=== PATIENT | female | born 1990 | race Caucasian/White ===

== ENCOUNTER 2019-06-09 11:45 | Emergency (ER) | payer MEDICAID, OTHER ==
[2019-06-09 11:54] VITALS: BP 105/73
[2019-06-09 12:41] LABS: Bacteria,Urine 1+ /HPF (Negative); Bilirubin,Urine NEG (Negative); Blood,Urine NEG (Negative); Mucus,Urine 3+ /HPF
[2019-06-09 12:42] LABS: Color,Urine Yellow (Yellow)
--- NOTE | 2019-06-09 13:03 | Emergency Department Report ---
<LENO BARRETT - Last Filed: 06/09/19 11:56> ED HPI - General Chief complaint: Abdominal Pain Stated complaint: 13 WKS /VOMIT/DIZZY Source: patient Mode of arrival: Ambulatory Limitations: No Limitations - History of Present Illness Initial comments: 28 yo female states that she has been having increased nausea and vomiting for the duration of her 13 week . Her OBGYN gave her Prromethazine and Odansetron 4 weeks ago, but she has not had any relief. She further states that nothing makes it better. - Related Data Previous Rx's Medication Instructions Recorded Last Taken Type Doxylamine Succinate/Vit B6 2 each PO QHS #30 tablet. 06/09/19 Unknown Rx [Mauri Burr 10-10 mg Tablet] Allergies Allergy/AdvReac Type Severity Reaction Status Date / Time No Known Allergies Allergy Verified 06/09/19 11:49 ED Past Medical Hx - Past Medical History Previous Medical History?: No Hx Asthma: No Hx HIV: No - Surgical History Past Surgical History?: Yes Additional Surgical History: 3 c section - Social History Smoking Status: Never Smoker Substance Use Type: None - Medications Home Medications: Home Medications Medication Instructions Recorded Confirmed Last Taken Type Doxylamine Succinate/Vit B6 2 each PO QHS #30 tablet. 06/09/19 Unknown Rx [Mauri Burr 10-10 mg Tablet] ED Physical Exam - General Limitations: No Limitations ED Disposition Clinical Impression: with 13 completed weeks gestation, Nausea and vomiting during Disposition: DC-01 TO HOME OR SELFCARE Condition: Stable Instructions: Morning Sickness (ED), Hyperemesis Gravidarum (ED), Abdominal Pain (ED) Additional Instructions: Make sure to follow up with the primary care physician as discussed. Take all your medications as you've been prescribed. If you have any worsening symptoms or develop new symptoms please return to ED immediately. Prescriptions: Doxylamine Succinate/Vit B6 [Mauri Burr 10-10 mg Tablet] 2 each PO QHS #30 tablet. Referrals: PRIMARY CARE, [Primary Care Provider] - 3-5 Days [facility] [Provider Group] - 3-5 Days Forms: Accompanied Note, Work/School Release Form(ED) <KYLE RODRIGUEZ - Last Filed: 06/10/19 08:19> ED HPI - History of Present Illness Initial comments: Patient is a 28-year-old 003 who presents at about 13 weeks to ED complaining nausea vomiting with some dizziness and problems with eating and drinking fluids. Patient states she is unable to keep food down or any liquid to nausea. She denies abdominal pain, frequent urination, vaginal bleeding or discharge, fever, chills ED Review of Systems ROS: Stated complaint: 13 WKS /VOMIT/DIZZY Other details as noted in HPI Comment: All other systems reviewed and negative ED Physical Exam - General General appearance: alert, in no apparent distress - Head Head exam: Present: atraumatic, normocephalic - Eye Eye exam: Present: normal appearance - ENT ENT exam: Present: mucous membranes moist - Neck Neck exam: Present: normal inspection - Respiratory Respiratory exam: Present: normal lung sounds bilaterally. Absent: respiratory distress - Cardiovascular Cardiovascular Exam: Present: regular rate, normal rhythm. Absent: systolic murmur, diastolic murmur, rubs, gallop - GI/Abdominal GI/Abdominal exam: Present: soft, normal bowel sounds - Extremities Exam Extremities exam: Present: normal inspection - Back Exam Back exam: Present: normal inspection - Neurological Exam Neurological exam: Present: alert, oriented X3 - Psychiatric Psychiatric exam: Present: normal affect, normal mood - Skin Skin exam: Present: warm, dry, intact, normal color. Absent: rash ED Course Vital Signs 06/09/19 11:50 Temperature 97.7 F Pulse Rate 77 Respiratory 18 Rate Blood Pressure 105/73 [Right] O2 Sat by Pulse 100 Oximetry ED Medical Decision Making - Lab Data Result diagrams: 06/09/19 13:26 06/09/19 13:26 Laboratory Last Values WBC 5.9 K/mm3 (4.5-11.0) 06/09/19 13:26 RBC 4.64 M/mm3 (3.65-5.03) 06/09/19 13:26 Hgb 13.7 gm/dl (10.1-14.3) 06/09/19 13:26 Hct 38.9 % (30.3-42.9) 06/09/19 13:26 MCV 84 fl (79-97) 06/09/19 13:26 MCH 30 pg (28-32) 06/09/19 13:26 MCHC 35 % (30-34) H 06/09/19 13:26 RDW 12.8 % (13.2-15.2) L 06/09/19 13:26 Plt Count 264 K/mm3 (140-440) 06/09/19 13:26 Lymph % (Auto) 19.6 % (13.4-35.0) 06/09/19 13:26 [place] % (Auto) 4.0 % (0.0-7.3) 06/09/19 13:26 Eos % (Auto) 0.2 % (0.0-4.3) 06/09/19 13:26 Baso % (Auto) 0.5 % (0.0-1.8) 06/09/19 13:26 Lymph # 1.1 K/mm3 (1.2-5.4) L 06/09/19 13:26 [place] # 0.2 K/mm3 (0.0-0.8) 06/09/19 13:26 Eos # 0.0 K/mm3 (0.0-0.4) 06/09/19 13:26 Baso # 0.0 K/mm3 (0.0-0.1) 06/09/19 13:26 Seg Neutrophils % 75.7 % (40.0-70.0) H 06/09/19 13:26 Seg Neutrophils # 4.4 K/mm3 (1.8-7.7) 06/09/19 13:26 Sodium 137 mmol/L (137-145) 06/09/19 13:26 Potassium 4.2 mmol/L (3.6-5.0) 06/09/19 13:26 Chloride 100.6 mmol/L (98-107) 06/09/19 13:26 Carbon Dioxide 23 mmol/L (22-30) 06/09/19 13:26 Anion Gap 18 mmol/L 06/09/19 13:26 BUN 7 mg/dL (7-17) 06/09/19 13:26 Creatinine 0.5 mg/dL (0.7-1.2) L 06/09/19 13:26 Estimated GFR > 60 ml/min 06/09/19 13:26 BUN/Creatinine Ratio 14 % 06/09/19 13:26 Glucose 85 mg/dL (65-100) 06/09/19 13:26 Calcium 8.9 mg/dL (8.4-10.2) 06/09/19 13:26 Total Bilirubin 0.40 mg/dL (0.1-1.2) 06/09/19 13:26 AST 17 units/L (5-40) 06/09/19 13:26 ALT 22 units/L (7-56) 06/09/19 13:26 Alkaline Phosphatase 48 units/L (35-129) 06/09/19 13:26 Total Protein 7.1 g/dL (6.3-8.2) 06/09/19 13:26 Albumin 3.9 g/dL (3.9-5) 06/09/19 13:26 Albumin/Globulin Ratio 1.2 % 06/09/19 13:26 HCG, Qual Positive (Negative) 06/09/19 13:26 Urine Color Yellow (Yellow) 06/09/19 12:24 Urine Turbidity Clear (Clear) 06/09/19 12:24 Urine pH 6.0 (5.0-7.0) 06/09/19 12:24 Ur Specific [place] 1.019 (1.003-1.030) 06/09/19 12:24 Urine Protein 30 mg/dl mg/dL (Negative) 06/09/19 12:24 Urine Glucose (UA) Neg mg/dL (Negative) 06/09/19 12:24 Urine Ketones 20 mg/dL (Negative) 06/09/19 12:24 Urine Blood Neg (Negative) 06/09/19 12:24 Urine Nitrite Neg (Negative) 06/09/19 12:24 Urine Bilirubin Neg (Negative) 06/09/19 12:24 Urine Urobilinogen 4.0 mg/dL (<2.0) 06/09/19 12:24 Ur Leukocyte Esterase Neg (Negative) 06/09/19 12:24 Urine WBC (Auto) 3.0 /HPF (0.0-6.0) 06/09/19 12:24 Urine RBC (Auto) 4.0 /HPF (0.0-6.0) 06/09/19 12:24 U Epithel Cells (Auto) 1.0 /HPF (0-13.0) 06/09/19 12:24 Urine Bacteria (Auto) 1+ /HPF (Negative) 06/09/19 12:24 Urine Mucus 3+ /HPF 06/09/19 12:24 - Medical Decision Making 28-year-old female presents with nausea and vomiting associated with Patient sometimes and not relieved with Zofran. Patient received 1L fluids and Reglan here in the ED. She reports feeling better upon reevaluation. Discussed diagnosis prescription for nausea and vomiting. Discussed small frequent nose throughout the day. Discussed follow-up with [facility] as scheduled. Vital signs stable patient is in no acute distress. Critical care attestation.: If time is entered above; I have spent that time in minutes in the direct care of this critically ill patient, excluding procedure time. ED Disposition Is pt being admited?: No Does the pt Need Aspirin: No Time of Disposition: 15:09
[2019-06-09 13:43] LABS: Basophils % (Auto) 0.5 % (0.0-1.8); Eosinophils % (Auto) 0.2 % (0.0-4.3); Hematocrit 38.9 % (30.3-42.9); Hemoglobin 13.7 gm/dl (10.1-14.3); Lymphocytes # (Auto) 1.1 K/mm3 (1.2-5.4); Lymphocytes % (Auto) 19.6 % (13.4-35.0); Mean Corpuscular HGB Conc 35 % (30-34); Mean Corpuscular Volume 84 fl (79-97); Monocytes # (Auto) 0.2 K/mm3 (0.0-0.8); Platelet Count 264 K/mm3 (140-440); Red Blood Count 4.64 M/mm3 (3.65-5.03); Red Cell Distribution Width 12.8 % (13.2-15.2)
[2019-06-09] MEDS ORDERED: NACL 0.9% 1000 ML 1,000 ML IV ONE (13:57)
[2019-06-09] MEDS ORDERED: REGLAN IV ONE (13:57)
[2019-06-09 14:12] LABS: Alanine Aminotransferase 22 units/L (7-56); Albumin 3.9 g/dL (3.9-5); BUN/Creatinine Ratio 14; Blood Urea Nitrogen 7 mg/dL (7-17); Calcium 8.9 mg/dL (8.4-10.2); Hemolysis Index 3
== END 2019-06-09 15:43 | disposition home or self-care (01) ==
LOC: ED 11:45
DX: O21.9 Vomiting of pregnancy, unspecified (principal); Z79.899 Other long term (current) drug therapy; Z3A.13 13 weeks gestation of pregnancy
CPT/HCPCS: 36415; 80053; 81001; 84703; 85025; 96361; 96374; 99283; J2765; J7030